=== PATIENT | female | born 1950 | race Caucasian/White ===

== ENCOUNTER → 2024-01-10 13:44 | Outpatient (REF) | payer MEDICARE, OTHER, SELFPAY | LOC: HWRAD 13:44 | PROVIDERS: ATTENDING PHYSICIAN Nurse Practitioner Family; FAMILY PHYSICIAN Internal Medicine | DX: Z12.31 Encounter for screening mammogram for malignant neoplasm of breast (principal); Z13.820 Encounter for screening for osteoporosis; Z78.0 Asymptomatic menopausal state | CPT/HCPCS: 77080 ==

== ENCOUNTER → 2024-06-11 11:32 | Outpatient (REF) | payer MEDICARE, OTHER, SELFPAY | LOC: RAD 11:32 | PROVIDERS: ATTENDING PHYSICIAN Internal Medicine Critical Care Medicine | DX: J45.30 Mild persistent asthma, uncomplicated (principal) | CPT/HCPCS: 71046 ==

== ENCOUNTER → 2025-01-07 10:37 | Outpatient (REF) | payer MEDICARE, OTHER, SELFPAY | LOC: HWRAD 10:37 | PROVIDERS: ATTENDING PHYSICIAN Physician Assistant | DX: M25.561 Pain in right knee (principal) | CPT/HCPCS: 73564 ==

== ENCOUNTER → 2025-01-30 14:10 | Outpatient (REF) | payer MEDICARE, OTHER, SELFPAY | LOC: HWWDC 14:10 | PROVIDERS: ATTENDING PHYSICIAN Physician Assistant | DX: Z12.31 Encounter for screening mammogram for malignant neoplasm of breast (principal) | CPT/HCPCS: 77063; 77067 ==

== ENCOUNTER → 2025-02-08 13:30 | Outpatient (REF) | payer MEDICARE, OTHER, SELFPAY | LOC: PAVMRI 13:30 | PROVIDERS: ATTENDING PHYSICIAN Orthopaedic Surgery; FAMILY PHYSICIAN Physician Assistant | DX: M17.11 Unilateral primary osteoarthritis, right knee (principal) | CPT/HCPCS: 73721 ==

== ENCOUNTER 2025-08-10 17:09 | Emergency (ER) | payer MEDICARE, OTHER, SELFPAY ==
[2025-08-10 17:23] VITALS: BP 127/84
[2025-08-10 17:48] LABS: Hematocrit 38.1 % (37.0-47.0); Hemoglobin 13.1 g/dL (12.0-16.0); Mean Corp Hgb Conc. 34.4 g/dL (33.0-37.0); Mean Corpuscular Volume 92.0 fL (81.0-99.0); Nucleated Red Blood Cells % 0 %; Platelet Count 213 10^3/uL (130-400); Red Cell Dist. Width 12.5 % (11.5-14.5)
[2025-08-10 18:11] LABS: ALT (SGPT) 28 U/L (0-35); AST (SGOT) 43 U/L (14-36); Albumin 4.4 g/dl (3.5-5.0); Alkaline Phosphatase 56 U/L (38-126); Blood Urea Nitrogen 15 mg/dl (7-17); Calcium 9.3 mg/dl (8.4-10.2); Carbon Dioxide 26 mmol/L (22-30); Chloride 96 mmol/L (98-107); Glucose 112 mg/dl (70-99); Potassium 4.3 mmol/L (3.5-5.1); Sodium 129 mmol/L (135-145); Total Protein 7.1 g/dl (6.3-8.2); eGFR > 60.00
[2025-08-10 18:23] LABS: COVID-19 Antigen Negative (Negative)
[2025-08-10] MEDS: DUONEB 3 ML INH (18:27)
[2025-08-10 19:00] VITALS: BP 117/59
[2025-08-10 19:41] VITALS: BMI 21.6
--- NOTE | 2025-08-10 19:44 | ED.GENMED ---
History of Present Illness
General
Chief Complaint: Breathing Problem
Source: patient
Exam Limitations: none
Time Seen by Provider: 08/10/25 17:59
Nursing documentation reviewed up to this point in time: agreed with
History of Present Illness
History of Present Illness:
75 yo female w h/o asthma, presents for worsening cough, SUTTON past week, sore throat past few days. She reports a decline in her peak flow to below 200, which is significantly low for her. She notes that a reading below 250 typically indicates
trouble. She experiences shortness of breath, particularly when engaging in physical activity. She describes passing out last night while attempting to reach the bathroom, resulting in a fall with brief LOC. Her spouse reported hearing a noise and
found her on the floor in the bathroom arousable and helped her to bed where she faltered again but no significant fall. The patient currently experiences soreness in her nose but no visible bruising, soreness of right knee and hip since the fall.
For the last week, she has experienced increased shortness of breath, cough, weakness, fatigue, sore throat, poor appetite, and an intermittent fever. She did not take any brpy-fuk-ecacmid medicines like acetaminophen or ibuprofen. She also reports
using her nebulizer today with some relief. She takes levothyroxine, rosuvastatin, and a steroid inhaler (Arnuity) regularly, and she uses a levalbuterol inhaler and nebulizer prn;
Past History
Past History
ED Past Medical History: Asthma
ED Past Surgical History: Gynecological
Social History
Tobacco: Non-smoker
Alcohol: None
Personal:
Living: with family
Review of Systems
Review of Systems
Allergies reviewed?: Yes
All Other Systems: ROS reviewed and negative except as documented in HPI and ROS
Constitutional: Denies fever or chills
EENT: Reports sore throat
Respiratory: Reports cough
Cardiac: Denies chest pain
ABD/GI: Reports anorexia; Denies abdominal pain, nausea, vomiting or diarrhea
: Denies dysuria or difficulty voiding
Musculoskeletal: Reports no symptoms
Skin: Reports no symptoms
Neurological: Reports no symptoms
Phy Exam
Physical Exam
Physical Exam:
GENERAL: No acute distress. A&Ox3.
CONSTITUTIONAL: Afebrile.
EYES: clear, conjunctivae normal
ENMT: moist mucus membranes, Pharynx mildly erythematous
RESPIRATORY: Regular respirations, nonlabored, lungs clear. Frequent non productive cough.
CARDIOVASCULAR: Regular rate and rhythm, no murmurs, no rubs.
GI: Soft, nontender, normal BS
MUSCULOSKELETAL: Moves with ease. Well perfused.
SKIN: Warm, dry, pink
PSYCH: Normal mood and affect. Well kept, interactive and appropriate
NEUROLOGIC: Awake, alert and oriented. No focal neurological deficits.
Scores
Heart Failure Risk
Heart Failure Risk Score: Not Applicable
Course
Orders/Labs/Results
Orders:
Orders
08/10/25 17:27
Electrocardiogram (*1) Urgent
Reason for Study: Shortness of Breath
EKG- Treatment ONCE
CR Chest - 2 Views Urgent
Comment:
Reason For Exam: cough, fever, sob
08/10/25 17:36
COVID-19 Antigen Urgent
Source: Nasal Swab
Complete Blood Count/With Diff Urgent
Comprehensive Metabolic Panel Urgent
Influenza A+B Rapid Molecular Urgent
JD Source: Nasal Swab
Specimen Description:
08/10/25 18:19
Ipratropium/Albuterol Sulfate [Duoneb] 3 ml INH R NOW STA
08/10/25 20:06
Rapid Strep Group A Urgent
JD Source: Throat/Pharynx
Specimen Description:
Date Specimen was Collected: 08/10/25
Time Specimen was Collected: 20:01
Throat Culture [Throat Culture, Comprehensive] Urgent
JD Source: Throat/Pharynx
Specimen Description:
Date Specimen was Collected: 08/10/25
Time Specimen was Collected: 20:01
08/10/25 21:06
Dexamethasone Sod Phosphate [Decadron] 10 mg IV NOW STA
08/10/25 21:10
Prednisone [Deltasone] 50 mg PO NOW STA
Abnormal Lab Results
08/10/25
17:36
RBC 4.14 L 10^6/uL
(4.20-5.40)
MCH 31.6 H pg
(27.0-31.0)
Lymphocytes % 20.0 L %
(20.5-51.1)
Sodium 129 L mmol/L
(135-145)
Chloride 96 L mmol/L
(98-107)
Glucose 112 H mg/dl
(70-99)
AST 43 H U/L
(14-36)
08/10/25 17:36
08/10/25 17:36
Vital Signs
Initial and Last Documented VS:
Initial Vital Signs
Temp Pulse Resp BP Pulse Ox
99.0 F 86 16 127/84 97
08/10/25 17:23 08/10/25 17:23 08/10/25 17:23 08/10/25 17:23 08/10/25 17:23
Last Documented Vital Signs
Temp Pulse Resp BP Pulse Ox
99.0 F 93 16 116/75 93
08/10/25 17:23 08/10/25 21:15 08/10/25 21:00 08/10/25 21:00 08/10/25 21:15
Bench Hand Machine consulted with Physician
Bench Hand Machine consulted with physician?: Yes
Name of Physician Consulted: Luis
MDM/Problems Addressed
Differential Diagnosis Includes:
Asthma exacerbation, Viral URI, Flu, Covid, bronchitis, PNA
MDM/Problems Addressed:
75 yo female w h/o asthma, presents for worsening cough, SUTTON past week, sore throat past few days. She reports a decline in her peak flow to below 200, which is significantly low for her. She notes that a reading below 250 typically indicates
trouble. She experiences shortness of breath, particularly when engaging in physical activity. She describes passing out last night while attempting to reach the bathroom, resulting in a fall with brief LOC. Her spouse reported hearing a noise and
found her on the floor in the bathroom arousable and helped her to bed where she faltered again but no significant fall. The patient currently experiences soreness in her nose but no visible bruising, soreness of right knee and hip since the fall.
For the last week, she has experienced increased shortness of breath, cough, weakness, fatigue, sore throat, poor appetite, and an intermittent fever. She did not take any [id number] medicines like acetaminophen or ibuprofen. She also reports
using her nebulizer today with some relief. She takes levothyroxine, rosuvastatin, and a steroid inhaler (Arnuity) regularly, and she uses a levalbuterol inhaler and nebulizer prn;
Afebrile, NAD
EKG: NSR w sinus arrhythmia HR 92
CBC unremarkable.
CMP: Na 129 otherwise unremarkable
Covid neg
Influenza neg
7:45 p.m.
States the duoneb helped, feeling better
Rapid strep neg
CXR reviewed with Dr. Smith: NAD
Pt ambulated up and down hallway, pulse ox maintained 94-95% RA. HR remained 90-92.
Pt has prednisone at home.
Pt offered admission but wants to go home. 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 They understand return instructions
*Pulse Oximetry
SaO2: 94
Oxygen Mode of Delivery: Room air
Patient hypoxic: no
*EKG
EKG Intrepretation Date: 08/10/25
Interpretation: normal
Heart Rate: 92
Rate: normal
Rhythm: sinus and sinus arrhythmia
[place]: normal axis
Interval: normal interval
QRS Pattern: normal QRS
Ischemia: no ischemia
*Critical Care Note
Total Time (30-74mins, 75-104mins- exclusive of procedures): Not Applicable
ED Attending Note
-
Portions of this chart may have been created with voice recognition software.� Occasional wrong word or��sound alike� substitutions may have occurred due to the inherent limitations of voice recognition software.
Discharge Plan
Departure
Patient Disposition: Home (Routine Discharge)
Date of Disposition: 08/10/25
Time of Disposition: 21:17
Patient with high blood pressure during this ER visit?: No
Condition: Good
Discharge Problem:
Upper respiratory infection, viral, Asthma
Instructions: Asthma, Adult (DC), Upper respiratory infection in adults - ED (DC)
Referrals:
Celestina Beckford PA-C [Family Provider, Internal Medicine] - Follow up in 5-7 days
Activity Restrictions/Additional Instructions:
Take your prednisone as follows: 40 mg x 2 days, 30 mg x 2 days, 20 mg x 2 day then 10 mg x 1 days then 5 mg x 1 day.
Return here immediately for worse trouble breathing, fever above 100.5 not relieved with Tylenol or Ibuprofen, vomiting, feeling sicker in any way,.
Use your nebulizer every 6 hours for the next 2 days, then as needed
Interventions
Interventions:
*Risk Screen - Suicide Last Done: 08/10/25 17:10
*General Assessment Last Done: 08/10/25 19:41
*Neglect/Abuse Screening Last Done: 08/10/25 19:38
*ED COVID-19 Vaccine History Last Done: 08/10/25 19:41
*ED Influenza Vaccine History Last Done: 08/10/25 19:41
[facility] Fall Risk Assessment Tool Last Done: 08/10/25 19:41
*Nursing Disposition Last Done: 08/10/25 21:40
ED- Cardiac Assessment Last Done: 08/10/25 18:52
ED- Pulmonary Assessment Last Done: 08/10/25 18:52
Discharge Date and Time
Discharge Date/Time: 08/10/25 21:41
Print Language: [id number]
[2025-08-10 20:00] VITALS: BP 107/57
[2025-08-10 21:00] VITALS: BP 116/75
[2025-08-10] MEDS: DELTASONE 50 MG PO (21:26)
== END 2025-08-10 21:41 | disposition home or self-care (01) ==
LOC: EMR 17:09
PROVIDERS: Emergency Medicine; EMERGENCY PHYSICIAN Emergency Medicine; FAMILY PHYSICIAN Physician Assistant
DX: J06.9 Acute upper respiratory infection, unspecified (principal); J45.909 Unspecified asthma, uncomplicated
CPT/HCPCS: 99284; 94640; 71046; 80053; 85025; 87070; 87502; 87811; 87880; 93005